=== PATIENT | male | born 1985 | race Caucasian/White ===

== ENCOUNTER 2017-05-21 11:01 | Emergency (ER) | payer MEDICAID ==
[2017-05-21 11:10] VITALS: TEMP 98.2
[2017-05-21] MEDS ORDERED: LORazepam 1 MG TAB PO ONE ×2 (12:06→13:15)
[2017-05-21] MEDS ORDERED: ONDANSETRON DISINTEGRATING 4 MG TAB PO ONE (12:06)
--- NOTE | 2017-05-21 12:09 | EDPHY ---
General Narrative: CHIEF COMPLAINT: Heroin withdrawal HISTORY OF PRESENT ILLNESS: Patient complains of heroin withdrawal. He states that he last used heroin 2 days ago. He states that he is a "heavy heroin user. The heaviest that I know. " So reports concomitant use of methamphetamine and cocaine. Occasional alcohol ingestion as well. He is here asking for help for withdrawal symptoms. He shaky, anxious, sweating, nauseated. No seizure-like activity. No chest pain. No shortness of breath. No headache. No actual vomiting. He has had multiple episodes of withdrawal in the past. He has been seen by various different providers for this. He has no medication for this. He has no intent to harm himself or others. No other associated complaints or modifying factors. REVIEW OF SYSTEMS: Ten systems reviewed and are negative unless otherwise noted in the HPI PCP: No longer has a primary care physician SPECIALISTS: None PAST MEDICAL HISTORY: Substance abuse PAST SURGICAL HISTORY: No recent surgeries SOCIAL HISTORY: Smokes cigarettes. Occasional alcohol ingestion, last intake last night. Polysubstance abuse FAMILY HISTORY: Noncontributory EXAMINATION General Appearance: Alert, no distress, anxious and fidgeting and pacing Head: normocephalic, atraumatic Eyes: Pupils equal and round, no conjunctival pallor or injection ENT, Mouth: Mucous membranes moist. Airway patent Neck: Normal inspection, supple, non-tender Respiratory: Lungs are clear to auscultation. No wheezing rhonchi or crackles Cardiovascular: Tachycardic rate at 102 beats per minute. Regular rhythm. No murmur Gastrointestinal: Abdomen is soft and nontender no tympany rigidity. Back: non-tender, no bony abnormalities Neurological: No seizure-like activity. GCS 15. A&O, nonfocal, normal gait. Strength symmetric Skin: Warm and dry, no rash. No petechiae or purpura Extremities: Nontender, no pedal edema. Multiple areas of excoriation and suspected recent injection sites to the AC skin Psychiatric: Mood and affect normal. Denies SI. Denies HI DIFFERENTIAL DIAGNOSES: Including but not limited to heroin withdrawal, substance abuse, polysubstance abuse MDM: 12:05 p.m. Acute heroin withdrawal. The patient does exhibit anxiety and withdrawal symptoms but he is in no acute distress. He denies any benzodiazepine use or abuse. He is at no risk for seizure activity by my estimation and opinion. I have ordered p.o. Ativan and clonidine. I have ordered p. o. Zofran, pulse oximetry monitoring and BP monitoring. I have also ordered an EKG. I do not feel he warrants an IV placement as he is a high flight risk and has completely normal vital signs at this time. 1:00 p.m. Asked to re-examine the patient as he is asking for me. Patient has been evaluated by case management with a note in the chart. She is provided outpatient resources for him. 1:15 p.m. Patient re-evaluated. He says that the Ativan has not helped. He says it "may have taken a hair off" of the symptoms. I have ordered additional 2 mg of Ativan by mouth. He is also hungry asking for food. He is okay to eat 2:00 p.m. Patient re-evaluated. Patient is feeling somewhat better but not significantly better. He describes feeling withdrawal symptoms but exhibits no outward signs of stress. He is well-appearing. He is eating food. He is not vomiting. He exhibits no seizure-like activity. I do feel he is stable for discharge with outpatient resources as provided. I discussed the nature of opiate withdrawal and a [id number] sequela. We discussed clonidine and Zofran medication. We discussed a lidocaine patch for an area of pain that he reports is chronic but is helpful to him. We discussed hydration and follow up with [facility] as discussed. We discussed ED precautions. He is not happy with the lack of opiate administration and with my lack of prescription for Ativan. I discussed why I am not providing benzodiazepine prescription out of fear of his safety with his concomitant polysubstance abuse. He is discharged home in stable condition. SUPERVISION: Patient was independently examined, but I discussed the case with my secondary supervising physician Dr. Lawton - History Smoking Status: Current every day smoker - Objective Vital Signs: Initial Vital Signs Temperature (C) 98.2 F 05/21/17 11:07 Heart Rate 80 05/21/17 11:07 Respiratory Rate 18 05/21/17 11:07 Blood Pressure 142/110 H 05/21/17 11:07 O2 Sat (%) 95 05/21/17 11:07 O2 Delivery Mode Room Air Allergies/Adverse Reactions: all nuts Allergy (Intermediate, Uncoded 04/11/16 16:28) PEANUTS Allergy (Uncoded 04/11/16 16:28) Home Medications: Medication Instructions Recorded Lidocaine [Lidoderm] 1 each TP Q12 #5 adh..patch 05/21/17 Ondansetron Odt [Zofran Odt 4 mg 4 mg PO Q6 PRN #12 tab 05/21/17 (*)] clonIDINE [Catapres (*)] 0.1 mg PO Q8 #4 tab 05/21/17 Medications Given: Discontinued Medications Clonidine (Catapres) 0.1 mg PO EDNOW ONE Stop: 05/21/17 11:57 Last Admin: 05/21/17 12:17 Dose: 0.1 mg Lorazepam (Ativan) 2 mg PO EDNOW ONE Stop: 05/21/17 12:07 Last Admin: 05/21/17 12:14 Dose: 2 mg Lorazepam (Ativan) 2 mg PO ONCE ONE Stop: 05/21/17 13:16 Last Admin: 05/21/17 13:22 Dose: 2 mg Ondansetron HCl (Zofran Odt) 4 mg PO EDNOW ONE Stop: 05/21/17 12:07 Last Admin: 05/21/17 12:17 Dose: 4 mg Departure - Departure Disposition: Home, Routine, Self-Care Clinical Impression: Heroin withdrawal Condition: Good Instructions: Narcotic Abuse (ED), Polysubstance Abuse (ED), Opioid Dependence (ED), Opioid Withdrawal (ED) Additional Instructions: 1. Clonidine as prescribed as needed for symptom control 2. Zofran as prescribed as needed for nausea 3. Follow up with [facility] for outpatient care 4. ED precautions as discussed Referrals: [facility],. [Clinic] - As per Instructions [facility] [Clinic] - As per Instructions Prescriptions: clonIDINE [Catapres (*)] 0.1 mg PO Q8 #4 tab Lidocaine [Lidoderm] 1 each TP Q12 #5 adh..patch Ondansetron Odt [Zofran Odt 4 mg (*)] 4 mg PO Q6 PRN #12 tab PRN Reason: Nausea/Vomiting, Use 1st
--- NOTE | 2017-05-21 12:36 | CPEKG ---
Heart Rate: 71 RR Interval: 845 P-R Interval: 172 QRSD Interval: 82 QT Interval: 380 QTC Interval: 413 P [place]: 82 QRS [place]: 73 T Wave [place]: 59 EKG Severity - NORMAL ECG - EKG Impression: SINUS RHYTHM Electronically Signed By: Yoon Lawton 21-May-2017 14:18:12
--- NOTE | 2017-05-21 13:04 | ASMTCMCOM ---
CM Note CM Note Notes: Patient self presents to the ER today with c/o heroin withdrawal. Chart reviewed and met with patient to provide resources. Patient is open about his history of addiction. He has been living in [place] for several years and is originally from [place]. He has been in contact with his mother today and we do have her contact in the chart. Patient has been to rehab in the past, although this was several years ago. Patient tells me his mother and grandmother are encouraging but he realizes that their ability and willingness to "help" him are limited. "I am an adult now and have been struggling with this for many years". I have provided patient with harm reduction resources ([facility]) for which patient tells me he is already involved. He requests referrlas for Suboxone providers which I have given, including "[facility]". Patient has Medicaid and I have encouraged him to reach out to [facility] and/or [facility] IF he is seeking further medical detox. I have provided him with the contact information for both facilities and told him I will help facilitate any process for getting into detox if he takes the initiative CM continues to follow and be of assistance and support as needed Date Signed: 05/21/2017 01:03 PM Electronically Signed By:Misti Alexander RN
[2017-05-21 14:35] VITALS: BP 122/75; PULSE 103; RESP 18; O2SAT 97
== END 2017-05-21 14:34 | disposition home or self-care (01) ==
DX: F11.23 Opioid dependence with withdrawal (principal); F17.210 Nicotine dependence, cigarettes, uncomplicated; Z91.010 Allergy to peanuts

== ENCOUNTER 2017-05-25 02:25 | Emergency (ER) | payer MEDICAID ==
[2017-05-25] MEDS ORDERED: LORazepam 2 MG/ML INJ IVP ONE ×3 (02:48→04:31)
[2017-05-25] MEDS ORDERED: NS 1,000 ML IV ONE (02:51)
--- NOTE | 2017-05-25 03:00 | EDPHY ---
H & P Stated Complaint: Staes in Withdrawl-see note Time Seen by Provider: 05/25/17 02:48 HPI/ROS: CC: "I'm withdrawing from heroin, and alcohol." HPI: This 31-year-old male presents to the emergency department today states he is trying to get off heroin, alcohol and benzodiazepines. He was just at the [facility] on May 21, 2017 with similar complaints. He was provided with numerous resources and states that he received a couple of calls back but his phone was not on and he did not try and call them back during normal business hours and therefore was unable to get through to them on Thursday. He states he has been laying in bed all day in cold sweats and having hot flashes, body cramps and diarrhea. He has had a runny nose and sneezing. He is here wanting medications. "If you could just give me some benzos, clonidine, and muscle relaxers I'm sure I can do this on my own." He is not interested in going to the [facility] having been there before. He states that although he was given referrals for Suboxone providers on his recent visit that it takes a couple of weeks to get into the program. However, a review of the patient's prescription monitoring program shows that he receive Suboxone from the [facility] in [place] from the summer through the fall of 2016. He denies suicidal and homicidal ideation. REVIEW OF SYSTEMS: Constitutional: No fever, no chills. Eyes: No discharge. ENT: See HPI Respiratory: No cough, no shortness of breath. Cardiac: No chest pain, no palpitations. Gastrointestinal: SEE HPI Genitourinary: No hematuria. Musculoskeletal: No back pain. Skin: No rashes. Neurological: No headache. Source: Patient Exam Limitations: No limitations - Personal History Current Tetanus/Diphtheria Vaccine: Unsure Current Tetanus Diphtheria and Acellular Pertussis (TDAP): Unsure - Medical/Surgical History PMH: PMH: Polysubstance abuse, anxiety, RLS, Migraines, GREGORIO PSH: Reconstruction of thumb and jaw, wisdom teeth removal FH: Denied NKDA (food allergy to nuts) Meds: Just finished Rx for Clonidine. Prior medications Trazodone, Seroquel, clonidine, Lidocaine patches Hx Asthma: Yes Hx Chronic Respiratory Disease: No Hx Diabetes: No Hx Cardiac Disease: No Hx Renal Disease: No Hx Cirrhosis: No Hx Alcoholism: No Hx HIV/AIDS: No Hx Splenectomy or Spleen Trauma: No Other PMH: MEDICAL ANXIETY, SLEEP DISORDER;. RIGHT THUMB ORIF, Multi drug abuse, perscribed suboxone, asthmatic as a child. - Family History Significant Family History: No pertinent family hx - Social History Smoking Status: Heavy smoker Alcohol Use: Heavy Drug Use: Cocaine, Heroin, Marijuana, Other (benzodiazepines) Additional Social History: Lives with a roommate. Mother and Grandmother for support. - Physical Exam Exam: General Appearance: Alert, restless. Eyes: Pupils equal and round no pallor or injection. ENT, Mouth: Mucous membranes are dry. Respiratory: There are no retractions, lungs are clear to auscultation. Cardiovascular: Regular rate and rhythm. Gastrointestinal: Abdomen is soft and nontender, no masses, bowel sounds normal. Neurological: Awake and alert, sensory and motor exams grossly normal. No seizure-like activity. GCS 15. Normal gait. Skin: Warm and dry, no rashes. Musculoskeletal: Neck is supple nontender. Extremities are symmetrical, full range of motion. Psychiatric: Patient is oriented X 3, agitated. DIFFERENTIAL DIAGNOSIS: After history and physical exam differential diagnosis was considered for but not limited to: [Polysubstance abuse, heroin withdrawal, alcohol withdrawal, drug seeking behavior] Constitutional: Initial Vital Signs Temperature (C) 97.9 F 05/25/17 02:42 Heart Rate 101 H 05/25/17 02:42 Respiratory Rate 22 H 05/25/17 02:42 Blood Pressure 143/85 H 05/25/17 02:42 O2 Sat (%) 97 05/25/17 02:42 O2 Delivery Mode Room Air Allergies/Adverse Reactions: all nuts Allergy (Intermediate, Uncoded 04/11/16 16:28) PEANUTS Allergy (Uncoded 04/11/16 16:28) Home Medications: Medication Instructions Recorded clonIDINE [Catapres (*)] 0.1 mg PO Q8 #4 tab 05/21/17 Medical Decision Making - Diagnostics EKG Interpretation: Normal sinus rhythm, heart rate 86, no acute abnormalities. ED Course/Re-evaluation: The patient was seen and examined. Vital signs were reviewed and were within normal limits. EKG was normal. CBC, comprehensive metabolic panel, lipase, magnesium were not concerning. Alcohol level was 185. Urine drug screen was positive for opiates and marijuana. The patient was very demanding and asking for multiple doses of benzodiazepines. He refused treatment at the [facility]. He was not suicidal or homicidal and was not eligible for hold. He would like to continue to try outpatient treatment but is also willing to follow up with the resources previously provided to him. He was given 3 mg of Ativan in total fall in the emergency department as well as a L of IV fluids. He had a snack and drink fluids without nausea or vomiting. He was given a take-home bottle of Ativan 1 mg tablets quantity of 4 the and 2 tablets of clonidine 0.1 mg. He was given multiple resources to help him with his polysubstance abuse issues whether he chooses inpatient or outpatient treatment. He was advised to call 911 should he become suicidal or homicidal or feel he has a life-threatening medical condition. - Data Points Laboratory Results: Laboratory Results 05/25/17 02:45 05/25/17 02:45 05/25/17 05/25/17 05/25/17 04:00 02:45 02:45 WBC 10.12 10^3/uL H 10^3/uL (3.80-9.50) RBC 5.57 10^6/uL 10^6/uL (4.40-6.38) Hgb 16.6 g/dL g/dL (13.7-17.5) Hct 48.0 % % (40.0-51.0) MCV 86.2 fL fL (81.5-99.8) MCH 29.8 pg pg (27.9-34.1) MCHC 34.6 g/dL g/dL (32.4-36.7) RDW 11.7 % % (11.5-15.2) Plt Count 283 10^3/uL 10^3/uL (150-400) MPV 9.0 fL fL (8.7-11.7) Neut % (Auto) 60.4 % % (39.3-74.2) Lymph % (Auto) 30.0 % % (15.0-45.0) [place] % (Auto) 5.0 % % (4.5-13.0) Eos % (Auto) 4.0 % % (0.6-7.6) Baso % (Auto) 0.4 % % (0.3-1.7) Nucleat RBC Rel Count 0.0 % % (0.0-0.2) Absolute Neuts (auto) 6.11 10^3/uL 10^3/uL (1.70-6.50) Absolute Lymphs (auto) 3.04 10^3/uL H 10^3/uL (1.00-3.00) Absolute Monos (auto) 0.51 10^3/uL 10^3/uL (0.30-0.80) Absolute Eos (auto) 0.40 10^3/uL 10^3/uL (0.03-0.40) Absolute Basos (auto) 0.04 10^3/uL 10^3/uL (0.02-0.10) Absolute Nucleated RBC 0.00 10^3/uL 10^3/uL (0-0.01) Immature Gran % 0.2 % % (0.0-1.1) Immature Gran # 0.02 10^3/uL 10^3/uL (0.00-0.10) Sodium 147 mEq/L H mEq/L (135-145) Potassium 3.8 mEq/L mEq/L (3.5-5.2) Chloride 105 mEq/L mEq/L (97-110) Carbon Dioxide 28 mEq/l mEq/l (22-31) Anion Gap 14 mEq/L mEq/L (8-16) BUN 8 mg/dL mg/dL (7-23) Creatinine 0.7 mg/dL mg/dL (0.7-1.3) Estimated GFR > 60 Glucose 89 mg/dL mg/dL (70-100) Calcium 9.1 mg/dL mg/dL (8.5-10.4) Magnesium 2.2 mg/dL mg/dL (1.6-2.3) Total Bilirubin 0.2 mg/dL mg/dL (0.1-1.4) Conjugated Bilirubin 0.1 mg/dL mg/dL (0.0-0.5) Unconjugated Bilirubin 0.1 mg/dL mg/dL (0.0-1.1) AST 16 IU/L L IU/L (17-59) ALT 27 IU/L IU/L (21-72) Alkaline Phosphatase 109 IU/L IU/L (38-126) Total Protein 6.7 g/dL g/dL (6.3-8.2) Albumin 3.8 g/dL g/dL (3.5-5.0) Lipase 236 IU/L IU/L (23-300) Salicylates < 1.0 mg/dL L mg/dL (2.0-20.0) Urine Opiates Screen NON-NEGATIVE H (NEGATIVE) Acetaminophen < 10 mcg/mL L mcg/mL (10-30) Urine Barbiturates NEGATIVE (NEGATIVE) Ur Phencyclidine Scrn NEGATIVE (NEGATIVE) Ur Amphetamine Screen NEGATIVE (NEGATIVE) U Benzodiazepines Scrn NEGATIVE (NEGATIVE) Urine Cocaine Screen NEGATIVE (NEGATIVE) U Marijuana (THC) Screen NON-NEGATIVE H (NEGATIVE) Ethyl Alcohol 185 mg/dL H mg/dL (0-10) Medications Given: Discontinued Medications Clonidine (Catapres) 0.2 mg PO EDNOW ONE Stop: 05/25/17 04:51 Last Admin: 05/25/17 04:57 Dose: 0.2 mg Sodium Chloride (Ns) 1,000 mls @ 0 mls/hr IV ONCE ONE; Wide Open PRN Reason: Protocol Stop: 05/25/17 02:52 Last Admin: 05/25/17 02:55 Dose: 1,000 mls Lorazepam (Ativan Injection) 1 mg IVP EDNOW ONE Stop: 05/25/17 02:49 Last Admin: 05/25/17 02:53 Dose: 1 mg Lorazepam (Ativan Injection) 1 mg IVP EDNOW ONE Stop: 05/25/17 03:56 Last Admin: 05/25/17 03:57 Dose: 1 mg Lorazepam (Ativan Injection) 1 mg IVP EDNOW ONE Stop: 05/25/17 04:32 Last Admin: 05/25/17 04:37 Dose: 1 mg Lorazepam (Ativan 1 Mg Prepack#4) 1 btl TAKEHOME EDNOW ONE Stop: 05/25/17 04:51 Last Admin: 05/25/17 04:57 Dose: 1 btl Departure - Departure Disposition: Home, Routine, Self-Care Clinical Impression: Polysubstance abuse Condition: Good Instructions: Clonidine (By mouth), Lorazepam (By mouth), Polysubstance Abuse ( ED) Additional Instructions: First thing this morning, contact the resources you were given from [facility] on 05/21/17. You have refused going to the [facility] but it is still an option for you as well as [facility] and/or [facility]. The [facility] also gave you harm reduction resources ([facility] and referrals for Suboxone providers including "[facility]." The [place] Prescription Monitoring Program database also shows that you received Suboxone last January from Dr. Narendra Oliver of the [facility], phone number . If you feel suicidal or homicidal or feel you have a life threatening medical condition you should call 911 and return to the ED immediately. Take the medications given to you only as directed. Referrals: [facility] [Outside] - As per Instructions
[2017-05-25 03:01] LABS: PLATELET COUNT 283 10^3/uL (150-400)
--- NOTE | 2017-05-25 03:03 | CPEKG ---
Heart Rate: 86 RR Interval: 698 P-R Interval: 188 QRSD Interval: 86 QT Interval: 368 QTC Interval: 440 P [place]: 73 QRS [place]: 65 T Wave [place]: 62 EKG Severity - NORMAL ECG - EKG Impression: SINUS RHYTHM Electronically Signed By: Dayanna Segura 25-May-2017 05:37:53
[2017-05-25 04:17] VITALS: BP 123/79; PULSE 88; RESP 20; TEMP 98.2; O2SAT 96
[2017-05-25] MEDS ORDERED: LORAZEPAM 1 MG PREPACK#4 BTL TAKEHOME ONE ×2 (04:47→04:50)
== END 2017-05-25 05:23 | disposition home or self-care (01) ==
LOC: CED 02:25
DX: F19.10 Other psychoactive substance abuse, uncomplicated (principal); J45.909 Unspecified asthma, uncomplicated; F17.200 Nicotine dependence, unspecified, uncomplicated; E86.9 Volume depletion, unspecified; Z91.010 Allergy to peanuts
CPT/HCPCS: 80048-PO; 80076-PO; 80307-PO; 83690-PO; 83735-PO; 85025-PO; 96374; G0480; J2060

== ENCOUNTER 2017-06-03 14:52 | Emergency (ER) | payer MEDICAID ==
--- NOTE | 2017-06-03 15:09 | EDPHY ---
H & P Stated Complaint: started suboxone today, having withdraws Time Seen by Provider: 06/03/17 15:08 HPI/ROS: HPI: This is a 31-year-old male who presents with Chief Complaint: started Suboxone today, having withdraws Location: Body Quality: Withdrawal Duration: Today Signs and Symptoms:+ nausea, + tremors, + abdominal pain, + headache, + chills, no vomiting, no chest pain, no shortness of breath, no hallucinations, no suicidal ideation, no homicidal ideation Timing: Acute on chronic Severity: Moderate Context: Patient has a history of IV heroin use, chronic opiate abuse, chronic Xanax abuse, chronic alcohol abuse presents today with last use of heroin/ benzodiazepine/alcohol approximately 12 hr ago requesting support for withdrawal symptoms. He wishes to go to detox and rehab. 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 He denies any history of withdrawal seizures. Denies hallucinations/suicidal ideation/ homicidal ideation. Patient reports that his family is mildly supportive. Has been using heroin for 1 year. Has not ate or drank anything today. Modifying Factors: None Comment: ROS: see HPI Constitutional: No fever, no chills, no weight loss Eyes: No blurred vision Respiratory: No shortness of breath, no cough Cardiovascular: No chest pain Gastrointestinal: + nausea, no vomiting, no diarrhea Genitourinary: No dysuria Extremities: No myalgias Neurologic: No weakness, no numbness Skin: No rashes Hematologic: No bruising, no bleeding MEDICAL/SURGICAL/SOCIAL HISTORY: Medical/surgical history: MEDICAL ANXIETY, SLEEP DISORDER; RIGHT THUMB ORIF, Multi drug abuse, prescribed Suboxone, asthmatic as a child. Social history: Unemployed. CONSTITUTIONAL: Untidy, patient is very uncooperative and irritable, writhing around in bed, rubbing palms of hands together, awake and alert, no obvious distress HEENT: Atraumatic and normocephalic, PERRL, EOMI. Tympanic membranes clear. Oropharynx clear, no exudate and moist pink mucosa. Airway patent. No lymphadenopathy. No meningismus. Cardiovascular: Normal S1/S2, regular rate, regular rhythm, without murmur rub or gallop. PULMONARY/CHEST: Symmetrical and nontender. Clear to auscultation bilaterally. Good air movement. No accessory muscle usage. Tachypnea. ABDOMEN: Soft, nondistended, nontender, no rebound, no guarding, no peritoneal signs, no masses or organomegaly. No CVAT. EXTREMITIES: 2/2 pulses, strength 5/5, no deformities, no clubbing, no cyanosis or edema. NEUROLOGICAL: no focal neuro deficits. GCS 15. Alert and oriented x4. SKIN: Warm and dry, no erythema. no rash. Good capillary refill. Source: Patient Exam Limitations: No limitations - Personal History Current Tetanus/Diphtheria Vaccine: Unsure Current Tetanus Diphtheria and Acellular Pertussis (TDAP): Unsure - Medical/Surgical History Hx Asthma: Yes Hx Chronic Respiratory Disease: No Hx Diabetes: No Hx Cardiac Disease: No Hx Renal Disease: No Hx Cirrhosis: No Hx Alcoholism: No Hx HIV/AIDS: No Hx Splenectomy or Spleen Trauma: No Other PMH: MEDICAL ANXIETY, SLEEP DISORDER;. RIGHT THUMB ORIF, Multi drug abuse, perscribed suboxone, asthmatic as a child. - Social History Smoking Status: Heavy smoker Constitutional: Initial Vital Signs Temperature (C) 37 C 06/03/17 14:56 Heart Rate 94 06/03/17 14:56 Respiratory Rate 22 H 06/03/17 14:56 Blood Pressure 145/84 H 06/03/17 14:56 O2 Sat (%) 98 06/03/17 14:56 O2 Delivery Mode Room Air Allergies/Adverse Reactions: all nuts Allergy (Intermediate, Uncoded 06/03/17 14:56) PEANUTS Allergy (Uncoded 06/03/17 14:56) Home Medications: Medication Instructions Recorded SUBOXONE 2 MG-0.5 MG TABLET 06/03/17 Medical Decision Making ED Course/Re-evaluation: Patient given 1 L normal saline, IV Dilaudid 1 mg x 3, IV Zofran and IV Ativan 2 mg adequate relief No signs reviewed upon arrival and stable. No signs of alcohol withdrawal seizures/hyperthermia/encephalopathy computer security manager consult as patient has Medicaid. He is willing to go to the [facility] at [place] may be a better resource for him. Does not meet criteria for M1 hold or Detainer. Patient reports that he is willing to go to the [facility]. Ambulatory without assistance. 1640: Patient now refusing to be discharged from the hospital. Reports that he feels "like shit." Requesting more IV opiates and benzodiazepine. Explained that this is not appropriate at this time and that he has been given proper and sufficient supportive care. 1725: Charge nurse in-hospital police at bedside. Give the option for patient to be discharged to the [facility] with Librium prepack or to be discharged from the facility. Patient reports that now has agreed to be discharged to the [facility]. This patient was seen under the supervision of my secondary supervising physician. I evaluated care for this patient independently. Differential Diagnosis: Differential diagnosis includes but is not limited to benzodiazepine withdrawal , opiate withdrawal, alcohol withdrawal. - Data Points Medications Given: Discontinued Medications Chlordiazepoxide (Librium 25 Mg Prepack#6) 1 btl TAKEHOME EDNOW ONE Stop: 06/03/17 15:54 Last Admin: 06/03/17 15:56 Dose: 1 btl Hydromorphone HCl (Dilaudid) 1 mg IVP EDNOW ONE Stop: 06/03/17 15:20 Last Admin: 06/03/17 15:23 Dose: 1 mg Hydromorphone HCl (Dilaudid) 1 mg IVP EDNOW ONE Stop: 06/03/17 15:50 Last Admin: 06/03/17 15:57 Dose: 1 mg Hydromorphone HCl (Dilaudid) 1 mg IVP EDNOW ONE Stop: 06/03/17 16:23 Last Admin: 06/03/17 16:55 Dose: 1 mg Sodium Chloride (Ns) 1,000 mls @ 0 mls/hr IV ONCE ONE PRN Reason: Wide Open Stop: 06/03/17 15:20 Last Admin: 06/03/17 15:23 Dose: 1,000 mls Lorazepam (Ativan Injection) 2 mg IVP EDNOW ONE Stop: 06/03/17 15:20 Last Admin: 06/03/17 15:23 Dose: 2 mg Ondansetron HCl (Zofran) 4 mg IVP EDNOW ONE Stop: 06/03/17 15:50 Last Admin: 06/03/17 15:56 Dose: 4 mg Departure - Departure Disposition: Other Psych, Not [place] Clinical Impression: Opiate withdrawal, Benzodiazepine withdrawal without complication, Alcohol dependence with withdrawal, uncomplicated Condition: Fair Instructions: Benzodiazepine Abuse (ED), Narcotic Abuse (ED), Abuse of Alcohol (ED) Additional Instructions: Please refrain from using Heroin, Xanax, alcohol. Go to the [facility] immediately from the emergency room. computer security manager has given you resources for outpatient detox and rehab facilities. [facility] may be a good option with Medicaid. [facility]: [phone] [facility]: [phone] You may call either of the above detox facilities to schedule an intake evaluation. It may be a week before thay are able to get you in, so please call [facility] I have also provided you with a list of other drug and alcohol resources that participate with Medicaid Referrals: [facility] Detox 24 Hours [Outside] - As per Instructions
[2017-06-03] MEDS ORDERED: HYDROmorphONE/DILAUDID 1 MG/ML INJ IVP ONE ×3 (15:19→16:22)
[2017-06-03] MEDS ORDERED: LORazepam 2 MG/ML INJ IVP ONE (15:19)
[2017-06-03] MEDS ORDERED: NS 1,000 ML IV ONE (15:19)
[2017-06-03] MEDS ORDERED: ONDANSETRON 4 MG/2 ML VIAL IVP ONE (15:49)
[2017-06-03] MEDS ORDERED: CHLORDIAZEPOXIDE 25MG PREPK#6 BTL TAKEHOME ONE ×2 (15:51→15:53)
[2017-06-03 15:59] VITALS: O2SAT 97
[2017-06-03 17:51] VITALS: BP 128/85; PULSE 92; RESP 20; TEMP 98.6
== END 2017-06-03 17:46 ==
DX: F11.23 Opioid dependence with withdrawal (principal); F19.239 Other psychoactive substance dependence with withdrawal, unspecified; F17.200 Nicotine dependence, unspecified, uncomplicated; J45.909 Unspecified asthma, uncomplicated; F10.230 Alcohol dependence with withdrawal, uncomplicated
CPT/HCPCS: 96374; J1170; J2060; J2405